=== PATIENT | female | born 1945 | race Caucasian/White ===

== ENCOUNTER 2023-10-20 16:20 | Inpatient (IN) | payer MEDICARE, BC ==
[~2023-10-20] VITALS: Ht 162.6 cm; Wt 64.0 kg
[2023-10-20] MEDS ORDERED: IV NORMAL SALINE 500 ML BAG IV ONE (16:45)
[2023-10-20] MEDS ORDERED: LABETALOL HCL 100 MG/20 ML VIAL IV ONE (17:00)
[2023-10-20 17:02] LABS: BASOPHILS # (AUTO) 0.2 K/UL (0.0-0.2); BASOPHILS % (AUTO) 2.6 % (0.0-2.0); DIFFERENTIAL COMMENT 0; EOSINOPHILS # (AUTO) 0.3 K/uL (0.0-0.7); EOSINOPHILS % (AUTO) 3.8 % (0.0-7.0); HEMATOCRIT 39.1 % (31.2-41.9); HEMOGLOBIN 13.1 g/dL (10.9-14.3); LYMPHOCYTES # (AUTO) 2.4 K/uL (0.8-4.8); LYMPHOCYTES % (AUTO) 34.5 % (20.5-51.5); MEAN CORPUSCULAR HEMOGLOBIN 34.5 uug (24.7-32.8); MEAN CORPUSCULAR HGB CONC 33 g/dL (32.3-35.6); MEAN CORPUSCULAR VOLUME 103.3 fL (75.5-95.3); MONOCYTES # (AUTO) 0.4 K/uL (0.1-1.30); MONOCYTES % (AUTO) 5.5 % (0.0-11.0); NEUTROPHILS # (AUTO) 3.7 K/uL (1.8-8.9); NEUTROPHILS % (AUTO) 53.6 % (38.5-71.5); PLATELET COUNT (AUTO) 204 K/uL (179-408); RED BLOOD CELL COUNT(AUTO) 3.78 MIL/uL (3.63-4.92); WHITE BLOOD COUNT (AUTO) 6.8 K/uL (3.8-11.8)
[2023-10-20] MEDS ORDERED: LABETALOL HCL 100 MG/20 ML VIAL ONE (17:04)
[2023-10-20 17:10] LABS: *BILIRUBIN,URIN NEGATIVE (NEGATIVE); *CLARITY,URINE CLEAR (CLEAR); *COLOR,URINE YELLOW (YELLOW); *KETONES,URINE NEGATIVE (NEGATIVE); *PROTEIN,URINE NEGATIVE (NEGATIVE); *UROBILINOGEN,URINE 0.2 E.U./dl (NORMAL); LEUKOCYTE ESTERASE ,URINE NEGATIVE (NEGATIVE); NITRITE, URINE NEGATIVE (NEGATIVE); UGLUCOSE NEGATIVE (NEGATIVE)
[2023-10-20 17:28] LABS: AMMONIA 10 umol/L (11-32)
[2023-10-20 17:36] LABS: ALANINE AMINOTRANSFERASE 37 U/L (14-59); ALBUMIN 4.1 g/dL (3.4-5.0); ALKALINE PHOSPHATASE 76 U/L (50-136); ASPARTATE AMINOTRANSFERASE 29 U/L (15-37); BILIRUBIN,DIRECT < 0.1 mg/dL (0.0-0.2); BILIRUBIN,TOTAL 0.3 mg/dL (0.2-1.0); CALCIUM 9.3 mg/dL (8.5-10.1); CARBON DIOXIDE 27 mmol/L (21-32); CHLORIDE 103 mmol/L (98-107); CREATININE 1.2 mg/dL (0.6-1.3); GLUCOSE 95 mg/dL (74-106); POTASSIUM 3.6 mmol/L (3.5-5.1); SODIUM SERUM 140 mmol/L (136-145); TOTAL PROTEIN, SERUM 7.4 g/dL (6.4-8.2); UREA NITROGEN, BLOOD 15 mg/dL (7-18)
[2023-10-20 17:43] LABS: *BLOOD, URINE NEGATIVE (NEGATIVE)
[2023-10-20 17:45] LABS: ETHANOL < 3 MG/DL (0-10)
[2023-10-20 17:51] LABS: *AMPHETAMINE, URINE NEGATIVE (NEGATIVE); *BARBITURATE, URINE POSITIVE (NEGATIVE); *BENZODIAZEPINE, URINE NEGATIVE (NEGATIVE); *CANNABINOID, URINE NEGATIVE (NEGATIVE); *COCCAINE, URINE NEGATIVE (NEGATIVE); *OPIATE, URINE NEGATIVE (NEGATIVE); *PHENCYCLIDINE SCREEN,URINE NEGATIVE (NEGATIVE)
[2023-10-20 17:53] LABS: FENTANYL, URINE NEGATIVE (NEGATIVE)
[2023-10-20] MEDS ORDERED: DIAZ5TAB4 PO (17:58)
[2023-10-20] MEDS ORDERED: CALC-897 PO (17:58)
[2023-10-20] MEDS ORDERED: BUTA-284 PO (17:58)
[2023-10-20] MEDS ORDERED: MECL-159 PO (17:58)
[2023-10-20] MEDS ORDERED: FAMO20TA8 PO (17:58)
[2023-10-20] MEDS ORDERED: ASPI81TA31 PO (17:58)
[2023-10-20] MEDS ORDERED: ACET-73 PO (17:58)
[2023-10-20] MEDS ORDERED: FLAX100032 PO (17:58)
[2023-10-20] MEDS ORDERED: OMEG-130 PO (17:58)
[2023-10-20] MEDS ORDERED: PANT40TA49 PO (17:58)
[2023-10-20] MEDS ORDERED: MULT-1201 PO (17:58)
[2023-10-20] MEDS ORDERED: ATEN25TA PO (17:58)
[2023-10-20] MEDS ORDERED: ATOR80TA PO (17:58)
[2023-10-20] MEDS ORDERED: TRAM50TA2 PO (17:58)
[2023-10-20] MEDS ORDERED: DILT240T12 PO (17:58)
[2023-10-20] MEDS ORDERED: BUTALB/ACETAMINOPHEN/CAFFEINE CAPSULE PO PRN (19:00)
[2023-10-20] MEDS ORDERED: BUTALB/ACETAMINOPHEN/CAFFEINE CAPSULE ONE (19:14)
[2023-10-20] MEDS: MAG HYDROX/AL HYDROX/SIMETH 30 ML LIQUID UDC PO ONE ×2 (20:00→20:22)
[2023-10-20] MEDS ORDERED: MAG HYDROX/AL HYDROX/SIMETH 30 ML LIQUID UDC ONE (20:00)
[2023-10-20] MEDS ORDERED: MECLIZINE HCL 25 MG TABLET PO PRN (21:30)
[2023-10-20] MEDS ORDERED: ENALAPRILAT DIHYDRATE 1.25 MG/1 ML VIAL IV PRN (21:30)
[2023-10-20] MEDS ORDERED: TRAMADOL HCL 50 MG TABLET PO PRN (21:30)
[2023-10-20] MEDS ORDERED: ACETAMINOPHEN ES 500 MG TABLET PO PRN (22:00)
[2023-10-20] MEDS: DIAZEPAM 5 MG TABLET PO PRN (22:18)
[2023-10-20] MEDS: HYDROCODONE/APAP 10-325 MG TABLET PO PRN (22:19)
[2023-10-21 04:00] VITALS: BP 146/74; TEMP 98.2; O2SAT 97
[2023-10-21] MEDS: HYDROCODONE/APAP 10-325 MG TABLET PO PRN (06:08)
[2023-10-21 06:15] LABS: BASOPHILS # (AUTO) 0.1 K/UL (0.0-0.2); BASOPHILS % (AUTO) 1.2 % (0.0-2.0); EOSINOPHILS # (AUTO) 0.2 K/uL (0.0-0.7); EOSINOPHILS % (AUTO) 3.5 % (0.0-7.0); HEMATOCRIT 34.7 % (31.2-41.9); HEMOGLOBIN 11.8 g/dL (10.9-14.3); LYMPHOCYTES # (AUTO) 2.1 K/uL (0.8-4.8); LYMPHOCYTES % (AUTO) 35.5 % (20.5-51.5); MEAN CORPUSCULAR HEMOGLOBIN 35.1 uug (24.7-32.8); MEAN CORPUSCULAR HGB CONC 34 g/dL (32.3-35.6); MEAN CORPUSCULAR VOLUME 102.8 fL (75.5-95.3); MONOCYTES # (AUTO) 0.5 K/uL (0.1-1.30); MONOCYTES % (AUTO) 7.6 % (0.0-11.0); NEUTROPHILS # (AUTO) 3.1 K/uL (1.8-8.9); NEUTROPHILS % (AUTO) 52.2 % (38.5-71.5); PLATELET COUNT (AUTO) 176 K/uL (179-408); RED BLOOD CELL COUNT(AUTO) 3.37 MIL/uL (3.63-4.92); RED CELL DISTRIBUTION WIDTH 12.7 % (12.3-17.7)
[2023-10-21 06:26] LABS: DIFFERENTIAL COMMENT 1
[2023-10-21] MEDS ORDERED: PANTOPRAZOLE SODIUM 40 MG TABLET.DR PO ONE (07:00)
[2023-10-21 07:15] LABS: ALANINE AMINOTRANSFERASE 33 U/L (14-59); ALBUMIN 3.5 g/dL (3.4-5.0); ALKALINE PHOSPHATASE 58 U/L (50-136); ASPARTATE AMINOTRANSFERASE 18 U/L (15-37); BILIRUBIN,TOTAL 0.3 mg/dL (0.2-1.0); CALCIUM 8.5 mg/dL (8.5-10.1); CARBON DIOXIDE 29 mmol/L (21-32); CHLORIDE 105 mmol/L (98-107); CHOLESTEROL 128 mg/dL (<200); CREATININE 1.1 mg/dL (0.6-1.3); GLUCOSE 103 mg/dL (74-106); HDL CHOLESTEROL 60 mg/dL (40-60); MAGNESIUM 1.9 mg/dL (1.8-2.4); PHOSPHOROUS 4.1 mg/dL (2.5-4.9); POTASSIUM 3.4 mmol/L (3.5-5.1); SODIUM SERUM 141 mmol/L (136-145); TOTAL PROTEIN, SERUM 6.4 g/dL (6.4-8.2); TRIGLYCERIDES 64 MG/DL (30-150); UREA NITROGEN, BLOOD 11 mg/dL (7-18)
[2023-10-21] MEDS: MULTIVITAMINS,THERAPEUTIC TABLET PO SCH (08:41)
[2023-10-21] MEDS: ASPIRIN 81 MG TAB.CHEW PO SCH (08:41)
[2023-10-21] MEDS: DILTIAZEM HCL CD 240 MG CAP.SR.24H PO SCH ×2 (08:42→21:11)
[2023-10-21] MEDS ORDERED: PANTOPRAZOLE SODIUM 40 MG TABLET.DR PO SCH (09:00)
[2023-10-21] MEDS ORDERED: ATENOLOL 25 MG TABLET PO SCH ×2 (09:00)
[2023-10-21] MEDS ORDERED: POTASSIUM CHLORIDE 20 MEQ TAB.PRT.SR PO ONE (09:15)
[2023-10-21] MEDS: ONDANSETRON 4 MG/2 ML VIAL IV PRN ×2 (10:15→17:52)
[2023-10-21] MEDS ORDERED: CALC-764 PO (11:08)
[2023-10-21] MEDS ORDERED: ATOR40TA PO (11:08)
[2023-10-21] MEDS ORDERED: FAMO40TA7 PO (11:08)
[2023-10-21] MEDS: BUTALB/ACETAMINOPHEN/CAFFEINE CAPSULE PO PRN ×3 (11:10→19:07)
[2023-10-21 12:00] VITALS: BP 139/70; TEMP 98.1; O2SAT 97
[2023-10-21] MEDS: PANTOPRAZOLE SODIUM 40 MG TABLET.DR PO SCH (12:26)
[2023-10-21 13:30] VITALS: BP 174/70
[2023-10-21] MEDS ORDERED: SWABABLE VALVE TRANSFER SET EA MC ONE (13:33)
[2023-10-21] MEDS ORDERED: IOHEXOL 350 100 ML INFUS..BTL ONE (13:33)
[2023-10-21] MEDS ORDERED: IV NORMAL SALINE 250 ML IV ONE (13:33)
[2023-10-21] MEDS: CLOPIDOGREL 75 MG TABLET PO SCH (13:40)
[2023-10-21 13:53] LABS: BASOPHILS % (AUTO) 0.7 % (0.0-2.0); EOSINOPHILS # (AUTO) 0.1 K/uL (0.0-0.7); EOSINOPHILS % (AUTO) 0.9 % (0.0-7.0); HEMATOCRIT 36.1 % (31.2-41.9); HEMOGLOBIN 12.2 g/dL (10.9-14.3); LYMPHOCYTES # (AUTO) 1.4 K/uL (0.8-4.8); LYMPHOCYTES % (AUTO) 20.6 % (20.5-51.5); MEAN CORPUSCULAR HEMOGLOBIN 34.7 uug (24.7-32.8); MEAN CORPUSCULAR HGB CONC 34 g/dL (32.3-35.6); MEAN CORPUSCULAR VOLUME 102.7 fL (75.5-95.3); MONOCYTES # (AUTO) 0.3 K/uL (0.1-1.30); MONOCYTES % (AUTO) 5.1 % (0.0-11.0); NEUTROPHILS # (AUTO) 4.8 K/uL (1.8-8.9); NEUTROPHILS % (AUTO) 72.7 % (38.5-71.5); PLATELET COUNT (AUTO) 191 K/uL (179-408); RED BLOOD CELL COUNT(AUTO) 3.52 MIL/uL (3.63-4.92); RED CELL DISTRIBUTION WIDTH 12.6 % (12.3-17.7); WHITE BLOOD COUNT (AUTO) 6.6 K/uL (3.8-11.8)
[2023-10-21 14:02] LABS: CALCIUM 9.1 mg/dL (8.5-10.1); CARBON DIOXIDE 27 mmol/L (21-32); CHLORIDE 101 mmol/L (98-107); CREATININE 0.9 mg/dL (0.6-1.3); GLUCOSE 111 mg/dL (74-106); POTASSIUM 3.7 mmol/L (3.5-5.1); SODIUM SERUM 135 mmol/L (136-145); UREA NITROGEN, BLOOD 11 mg/dL (7-18)
[2023-10-21 14:03] LABS: DIFFERENTIAL COMMENT 1
[2023-10-21 16:00] VITALS: BP 208/84; TEMP 97; O2SAT 99
[2023-10-21] MEDS ORDERED: KETOROLAC TROMETHAMINE 30 MG INJ IVP PRN (17:00)
[2023-10-21] MEDS: KETOROLAC TROMETHAMINE 15 MG INJ IVP PRN (17:52)
[2023-10-21] MEDS: DOCUSATE SODIUM 100 MG CAPSULE PO SCH (21:10)
[2023-10-21] MEDS: DIAZEPAM 5 MG TABLET PO PRN (21:17)
[2023-10-21 23:13] VITALS: BP 167/87; TEMP 97.5; O2SAT 99
[2023-10-22] VITALS (8 sets, daily range): BP systolic 139–163; BP diastolic 64–90; TEMP 97.5–99.2; O2SAT 93–96
[2023-10-22 07:14] LABS: BASOPHILS # (AUTO) 0.1 K/UL (0.0-0.2); BASOPHILS % (AUTO) 0.8 % (0.0-2.0); EOSINOPHILS # (AUTO) 0.1 K/uL (0.0-0.7); EOSINOPHILS % (AUTO) 0.7 % (0.0-7.0); HEMATOCRIT 35.9 % (31.2-41.9); HEMOGLOBIN 12.4 g/dL (10.9-14.3); LYMPHOCYTES # (AUTO) 2.2 K/uL (0.8-4.8); LYMPHOCYTES % (AUTO) 27.8 % (20.5-51.5); MEAN CORPUSCULAR HGB CONC 35 g/dL (32.3-35.6); MEAN CORPUSCULAR VOLUME 101.5 fL (75.5-95.3); MONOCYTES # (AUTO) 0.7 K/uL (0.1-1.30); MONOCYTES % (AUTO) 8.5 % (0.0-11.0); NEUTROPHILS # (AUTO) 4.8 K/uL (1.8-8.9); NEUTROPHILS % (AUTO) 62.2 % (38.5-71.5); PLATELET COUNT (AUTO) 200 K/uL (179-408); RED BLOOD CELL COUNT(AUTO) 3.54 MIL/uL (3.63-4.92); RED CELL DISTRIBUTION WIDTH 12.5 % (12.3-17.7); WHITE BLOOD COUNT (AUTO) 7.8 K/uL (3.8-11.8)
[2023-10-22 07:21] LABS: CALCIUM 9.3 mg/dL (8.5-10.1); CARBON DIOXIDE 29 mmol/L (21-32); CHLORIDE 99 mmol/L (98-107); CREATININE 1.2 mg/dL (0.6-1.3); GLUCOSE 98 mg/dL (74-106); MAGNESIUM 2.1 mg/dL (1.8-2.4); PHOSPHOROUS 4.7 mg/dL (2.5-4.9); POTASSIUM 3.4 mmol/L (3.5-5.1); SODIUM SERUM 135 mmol/L (136-145); UREA NITROGEN, BLOOD 16 mg/dL (7-18)
[2023-10-22 07:42] LABS: DIFFERENTIAL COMMENT 1
[2023-10-22] MEDS: CLOPIDOGREL 75 MG TABLET PO SCH (08:47)
[2023-10-22] MEDS: ASPIRIN 81 MG TAB.CHEW PO SCH (08:47)
[2023-10-22] MEDS: PANTOPRAZOLE SODIUM 40 MG TABLET.DR PO SCH (08:47)
[2023-10-22] MEDS: MULTIVITAMINS,THERAPEUTIC TABLET PO SCH (08:47)
[2023-10-22] MEDS: DILTIAZEM HCL CD 240 MG CAP.SR.24H PO SCH ×2 (08:59→20:12)
[2023-10-22] MEDS ORDERED: POTASSIUM CHLORIDE 20 MEQ TAB.PRT.SR PO ONE (12:00)
[2023-10-22] MEDS: BUTALB/ACETAMINOPHEN/CAFFEINE CAPSULE PO PRN ×2 (13:27→20:22)
[2023-10-22] MEDS: IV NS 1000 ML 1,000 ML IV SCH ×2 (13:28→20:08)
[2023-10-22] MEDS: DOCUSATE SODIUM 100 MG CAPSULE PO SCH (20:08)
[2023-10-23 00:13] VITALS: BP 144/75; TEMP 98.5; O2SAT 95
[2023-10-23 04:00] VITALS: BP 141/72; TEMP 97.7; O2SAT 97
[2023-10-23] MEDS: IV NS 1000 ML 1,000 ML IV SCH ×2 (04:43→09:26)
[2023-10-23] MEDS: PANTOPRAZOLE SODIUM 40 MG TABLET.DR PO SCH (09:28)
[2023-10-23] MEDS: CLOPIDOGREL 75 MG TABLET PO SCH (09:28)
[2023-10-23] MEDS: ASPIRIN 81 MG TAB.CHEW PO SCH (09:28)
[2023-10-23] MEDS: MULTIVITAMINS,THERAPEUTIC TABLET PO SCH (09:28)
[2023-10-23] MEDS: DILTIAZEM HCL CD 240 MG CAP.SR.24H PO SCH (09:32)
[2023-10-23] MEDS: BUTALB/ACETAMINOPHEN/CAFFEINE CAPSULE PO PRN (09:37)
[2023-10-23] MEDS ORDERED: LORAZEPAM 2 MG/1 ML VIAL IV ONE (11:00)
[2023-10-23] MEDS: KETOROLAC TROMETHAMINE 15 MG INJ IVP PRN (11:20)
[2023-10-23] MEDS ORDERED: ALPRAZOLAM 0.5 MG TABLET PO ONE (11:30)
[2023-10-23 12:00] VITALS: BP 143/70; TEMP 98.2; O2SAT 97
[2023-10-23] MEDS ORDERED: CLOP75TA33 PO (15:45)
[2023-10-23 15:48] VITALS: BP 160/55; TEMP 98.6; O2SAT 96
[2023-10-23] MEDS ORDERED: ENSURE ENLIVE (VAN) 240 ML LIQUID PO SCH (17:00)
== END 2023-10-23 17:30 | disposition home or self-care (01) | DRG 103 ==
LOC: ER 16:22 → TRANSITION 19:58 → TELE3 20:27
PROVIDERS: ADMIT Internal Medicine; ATTEND Student in an Organized Health Care Education/Training Program
DX: G43.909 Migraine, unspecified, not intractable, without status migrainosus (principal); G93.49 Other encephalopathy; R47.81 Slurred speech; Z79.82 Long term (current) use of aspirin; E78.5 Hyperlipidemia, unspecified; I10 Essential (primary) hypertension
CPT/HCPCS: 36415; 70450; 70496; 70551; 71045; 83605; 83735; 84100; 84443; 84484; 85025; 85730; 87040; 93005; 93307; A4606; A4663; A9150; G0378; G0480; J1885; J2060; J2405; J3490; J7040; Q9967